=== PATIENT | male | born 1980 | race African-American/Black ===

== ENCOUNTER 2021-11-19 15:19 | Emergency (ER) | payer OTHER ==
[~2021-11-19] VITALS: Ht 185.4 cm; Wt 93.0 kg
[2021-11-19] MEDS ORDERED: PRED20TA2 PO (17:19)
[2021-11-19 17:29] VITALS: BP 168/112
== END 2021-11-19 17:35 | disposition home or self-care (01) ==
LOC: ER 15:19
DX: M50.10 Cervical disc disorder with radiculopathy, unspecified cervical region (principal); F17.210 Nicotine dependence, cigarettes, uncomplicated; J45.909 Unspecified asthma, uncomplicated
CPT/HCPCS: 70450; 72040; 93005